=== PATIENT | female | born 1970 | race Caucasian/White ===

== ENCOUNTER 2017-12-31 06:03 | Inpatient (IN) | payer OTHER ==
[2017-12-31 06:43] LABS: ADD MAN DIFF? NO
[2017-12-31 06:46] LABS: BASO # 0.1 x10^3/uL (0.0-0.2); BASO % 1 % (0-3); BILIRUBIN,URINE NEGATIVE (NEG); CLARITY,URINE CLOUDY; COLOR,URINE YELLOW; EOS # 0.1 x10^3/uL (0.0-0.7); EOS % 2 % (0-3); GLUCOSE,URINE NEGATIVE (NEG); HEMATOCRIT 41.4 % (36.0-47.0); HEMOGLOBIN 13.6 g/dL (12.0-15.5); LYMPH # 1.9 x10^3/uL (1.0-4.8); LYMPH % 27 % (24-48); MEAN CORPUSCULAR HEMOGLOBIN 26 pg (25-35); MEAN CORPUSCULAR HGB CONC 33 g/dL (31-37); MEAN CORPUSCULAR VOLUME 80 fL (79-100); MONO # 0.5 x10^3/uL (0.0-1.1); MONO % 8 % (0-9); NEUT # 4.5 x10^3uL (1.8-7.7); NEUT % 63 % (31-73); NITRITE,URINE NEGATIVE (NEG); PH,URINE 5.5; PLATELET COUNT 182 x10^3/uL (140-400); PROTEIN,URINE NEGATIVE (NEG-TRACE); RED BLOOD COUNT 5.18 x10^6/uL (3.50-5.40); RED CELL DISTRIBUTION WIDTH 14.9 % (11.5-14.5); UROBILINOGEN,URINE 0.2 mg/dL (0.2 mg/dL); WHITE BLOOD COUNT 7.1 x10^3/uL (4.0-11.0)
[2017-12-31] MEDS: fentaNYL PF VIAL 100 MCG/2 ML VIAL IV ×3 (06:51→16:34)
[2017-12-31] MEDS: ONDANSETRON PF 4 MG/2 ML VIAL. IV ×2 (06:51→17:06)
[2017-12-31 06:53] LABS: ANION GAP 8 (6-14); BLOOD UREA NITROGEN 13 mg/dL (7-20); BUN/CREATININE RATIO 13 (6-20); CALCIUM 8.9 mg/dL (8.5-10.1); CARBON DIOXIDE 27 mmol/L (21-32); CHLORIDE 106 mmol/L (98-107); GLUCOSE 103 mg/dL (70-99); POTASSIUM 3.4 mmol/L (3.5-5.1); SODIUM 141 mmol/L (136-145)
[2017-12-31 06:58] LABS: ALBUMIN 3.4 g/dL (3.4-5.0); ALBUMIN/GLOBULIN RATIO 0.8 (1.0-1.7); ALK PHOS 145 U/L (46-116); ALT (SGPT) 24 U/L (14-59); AST (SGOT) 18 U/L (15-37); LIPASE 181 U/L (73-393); TOTAL BILIRUBIN 0.4 mg/dL (0.2-1.0); TOTAL PROTEIN 7.6 g/dL (6.4-8.2)
[2017-12-31 07:03] LABS: TROPONINI < 0.017 ng/mL (0.000-0.055)
[2017-12-31 07:12] LABS: RBC,URINE OCC /HPF (0-2); WBC,URINE 20-40 /HPF (0-4)
[2017-12-31 07:13] LABS: BACTERIA,URINE MODERATE /HPF (0-FEW); SQUAMOUS EPITHELIAL CELL,UR MANY /LPF
[2017-12-31] MEDS ORDERED: CONTRAST GIVEN MC (07:30)
[2017-12-31] MEDS: IOHEXOL 300 MG/ML 100ML VIAL. IV (07:43)
[2017-12-31] MEDS: IV RINGERS,LACTATED 1000ML 1,000 ML IV ×2 (09:03→14:00)
[2017-12-31] MEDS: IV NORMAL SALINE 1000ML BAG 1,000 ML IV ×2 (09:13→15:53)
[2017-12-31] MEDS: MORPHINE SULFATE 4 MG/ML DISP.SYRIN. IV ×2 (09:14→12:48)
[2017-12-31] MEDS ORDERED: LIDOCAINE 1% PF 2 ML VIAL. ID (09:15)
[2017-12-31] MEDS: PIPERACILLIN/TAZOBACTAM 3.375 GM in IV NORMAL SALINE 50ML 50 ML IV (09:15)
[2017-12-31] MEDS ORDERED: ONDANSETRON PF 4 MG/2 ML VIAL. IV (09:15)
[2017-12-31] MEDS ORDERED: fentaNYL PF VIAL 100 MCG/2 ML VIAL IV (09:15)
[2017-12-31] MEDS ORDERED: MORPHINE SULFATE 4 MG/ML DISP.SYRIN. IV (09:15)
[2017-12-31] MEDS ORDERED: ROCURONIUM 50 MG/5 ML VIAL. (14:37)
[2017-12-31] MEDS ORDERED: MIDAZOLAM HCL/PF 2 MG/2 ML VIAL. (14:37)
[2017-12-31] MEDS ORDERED: fentaNYL PF VIAL 100 MCG/2 ML VIAL (14:37)
[2017-12-31] MEDS ORDERED: NEOSTIGMINE 10 MG/10 ML VIAL. (14:37)
[2017-12-31] MEDS ORDERED: GLYCOPYRROLATE 1 MG/5 ML VIAL. (14:38)
[2017-12-31] MEDS ORDERED: SEVOFLURANE 61 TO 120 MINUTES. IH (14:38)
[2017-12-31] MEDS ORDERED: SUCCINYLCHOLINE 200 MG/10 ML VIAL. (14:38)
[2017-12-31] MEDS ORDERED: KETOROLAC 30 MG/ML INJ FOR OR. INJ (14:38)
[2017-12-31] MEDS ORDERED: ONDANSETRON PF 4 MG/2 ML VIAL. (14:38)
[2017-12-31] MEDS ORDERED: DEXAMETHASONE SOD PHOS 20 MG/5 ML VIAL. (14:38)
[2017-12-31] MEDS ORDERED: PROPOFOL 20 ML IV (14:38)
[2017-12-31] MEDS: BUPIVACAINE-EPI 0.25%-1:200000 50 ML VIAL. INJ (15:27)
[2017-12-31] MEDS ORDERED: oxyCODONE/APAP 5/325 1 TAB TABLET PO (16:00)
[2017-12-31] MEDS: PROCHLORPERAZINE 10 MG/2 ML VIAL. IV (16:05)
[2017-12-31] MEDS: oxyCODONE/APAP 5/325 1 TAB TABLET PO (22:40)
[2018-01-01] MEDS: IV NORMAL SALINE 1000ML BAG 1,000 ML IV ×2 (01:22→05:13)
[2018-01-01] MEDS: oxyCODONE/APAP 5/325 1 TAB TABLET PO ×4 (05:35→21:20)
[2018-01-01] MEDS ORDERED: ONDANSETRON PF 4 MG/2 ML VIAL. IV (12:45)
[2018-01-01] MEDS: ONDANSETRON ODT 4 MG TAB.RAPDIS. PO ×2 (13:25→21:18)
[2018-01-02] MEDS: ONDANSETRON ODT 4 MG TAB.RAPDIS. PO (06:21)
[2018-01-02] MEDS: oxyCODONE/APAP 5/325 1 TAB TABLET PO (06:22)
== END 2018-01-02 11:00 | disposition home or self-care (01) | DRG 342 ==
LOC: ER 06:03 → 4 NORTH 08:00
PROC: 0DTJ4ZZ Resection of Appendix, Percutaneous Endoscopic Approach (ICD-10-PCS; principal; 2017-12-31 14:00)
DX: K35.80 Unspecified acute appendicitis (principal); N39.0 Urinary tract infection, site not specified; E87.6 Hypokalemia; F17.210 Nicotine dependence, cigarettes, uncomplicated; Z98.891 History of uterine scar from previous surgery
CPT/HCPCS: 36415; 74177; 80053; 81001; 83690; 84484; 85025; 87086; 88304; 96365; 96374; 96375; 99285; 99285-25; J0330; J0780; J1100; J1885; J2250; J2270; J2405; J2543; J2704; J2710; J3010; J3490; J7030; J7120; Q0162; Q9967

== ENCOUNTER 2019-11-23 13:17 | Emergency (ER) | payer OTHER ==
[~2019-11-23] VITALS: Ht 160 cm; Wt 74.5 kg
[~2019-11-23 13:17] MED LIST: OXYC1TAB7 PO
[2019-11-23 13:36] VITALS: BP 141/85
[2019-11-23] MEDS ORDERED: HYDROcodone/APAP 5/325MG 1 TAB TABLET PO ONE (13:45)
[2019-11-23] MEDS ORDERED: DIPHTH,PERTUSS(ACELL),TET TOX 0.5 ML DISP.SYRIN. VAX IM ONE (13:45)
--- NOTE | 2019-11-23 13:54 | PHYS DOC ---
Past Medical History Past Medical History: No Pertinent History Past Surgical History: Hysterectomy Smoking Status: Current Every Day Smoker Alcohol Use: None Drug Use: None Adult General Chief Complaint Chief Complaint: ANIMAL BITE HPI HPI Patient is a 49 year old female who presents with patient states that her cat got out of the house somehow this morning. She states they then had let the dogs out to go to the bathroom. She states that she has a great Elfego in a [employer] dog. She states she then heard screaming and when outside in the great Elfego in the [employer] had the cat. She states she tried to break it up and get the cat and somehow got bit by one of the dogs. She states the dogs are up-to-date on vaccinations. She does not know when her last tetanus was. Patient has left fifth finger pain and right ring finger pain. Review of Systems Review of Systems Integument: Left 5th finger injury and Right 4th finger injury. Denies rash or skin lesions [] All other systems were reviewed and found to be within normal limits, except as documented in this note. Current Medications Current Medications Current Medications Medications (Trade) Dose Ordered Sig/Corinna Start Time Stop Time Status Last Admin Dose Admin Acetaminophen/ Hydrocodone Bitart (Lortab 5/325) 1 tab 1X ONCE 11/23/19 13:45 11/23/19 13:47 DC 11/23/19 13:55 1 TAB Diphtheria/ Tetanus/Acell Pertussis (Boostrix) 0.5 ml ONCE ONCE 11/23/19 13:45 11/23/19 13:47 DC 11/23/19 13:55 0.5 ML Allergies Allergies Allergies Coded Allergies Type Severity Reaction Last Updated Verified No Known Drug Allergies 12/31/17 No Physical Exam Physical Exam Constitutional: Well developed, well nourished, no acute distress, non-toxic appearance. [] HENT: Normocephalic, atraumatic, bilateral external ears normal, oropharynx moist, no oral exudates, nose normal. [] Eyes: PERRLA, EOMI, conjunctiva normal, no discharge. [] Neck: Normal range of motion, no tenderness, supple, no stridor. [] Cardiovascular:Heart rate regular rhythm, no murmur [] Lungs & Thorax: Bilateral breath sounds clear to auscultation [] Abdomen: Bowel sounds normal, soft, no tenderness, no masses, no pulsatile masses. [] Skin: puncture wound to Left 5th finger and superficial laceration to Right 4th finger. Bruising. Warm, dry, no erythema, no rash. [] Back: No tenderness, no CVA tenderness. [] Extremities:R 4TH finger and 5th left finger tenderness, no cyanosis, no clubbing, ROM intact, no edema. [] Neurologic: Alert and oriented X 3, normal motor function, normal sensory function, no focal deficits noted. [] Psychologic: Affect normal, judgement normal, mood normal. [] Current Patient Data Vital Signs Vital Signs Date Time Temp Pulse Resp B/P (MAP) Pulse Ox O2 Delivery O2 Flow Rate FiO2 11/23/19 13:36 98.3 108 22 141/85 (103 97 Room Air 98.3 EKG EKG [] Radiology/Procedures Radiology/Procedures [] Impressions: [facility] [address] [place] [address] IMAGING REPORT Signed PATIENT: ANDRES BUENO ACCOUNT: [id number] : 1970 LOCATION: ER AGE: 49 SEX: F EXAM STATUS: REG ER ORD. PHYSICIAN: MARY GRIGGS APRN REASON: dog bite,no feeling in 5th digit of right hand,laceration on 4th digit left PROCEDURE: HAND BILAT 3V EXAM: Bilateral hands, 3 views. HISTORY: Dog bite. Laceration. COMPARISON: None. FINDINGS: 3 views of both hands are obtained. There is no fracture, dislocation or subluxation. No radiodense foreign body is seen. IMPRESSION: No acute osseous finding or radiodense foreign body. Electronically signed by: Eileen Alvarado MD (11/23/2019 2:13 PM) [facility] [place] DICTATED and SIGNED BY: EILEEN ALVARADO MD DATE: 11/23/191412 Course & Med Decision Making Course & Med Decision Making Pertinent Labs and Imaging studies reviewed. (See chart for details) Patient has 1 puncture wound to the right ring finger to the proximal middle phalanx on the inner left side. Bleeding is controlled and there is some bruising with 1+ edema. Patient can make a fist and move the finger. No deformity. Skin pink warm and dry. Radial pulse strong and present. Cap refill less than 3 seconds. Patient's second wound is to the left fifth finger at the distal phalanx. Patient has 4 superficial lacerations that are no bigger than 2- 3 mm long. Bleeding controlled. There is bruising and 1+ edema to the distal phalanx. Cap refill less than 3 seconds. Patient states that it is tingling. No joint deformities or bruising, damage or lacerations. Patient is given Boostrix and [place]. The wounds are cleaned with chlorhexidine and saline. [] Dragon Disclaimer Dragon Disclaimer This electronic medical record was generated, in whole or in part, using a voice recognition dictation system. Departure Departure Impression: Primary Impression: Dog bite Disposition: HOME, SELF-CARE Condition: STABLE Referrals: NO PCP (PCP) Patient Instructions: Animal Bite Additional Instructions: Keep areas clean and covered. Take antibiotic with food and as prescribed. Use ice and Ibuprofen to help with pain. Follow up with primary care provider. Watch for signs of infection. Scripts Ibuprofen (IBUPROFEN) 600 Mg Tablet 600 MG PO PRN Q6HRS PRN for INFLAMMATION, #20 TAB Prov: MARY GRIGGS APRN 11/23/19 Amoxicillin/Potassium Clav (AUGMENTIN 875-125 TABLET) 1 Each Tablet 1 TAB PO BID for 10 Days, #20 TAB 0 Refills Prov: MARY GRIGGS APRN 11/23/19 Problem Qualifiers Primary Impression: Dog bite Encounter type: initial encounter Qualified Codes: W54.0XXA - Bitten by dog, initial encounter MARY GRIGGS APRN Nov 23, 2019 13:54
--- NOTE | 2019-11-23 14:16 | RAD ---
EXAM: Bilateral hands, 3 views. HISTORY: Dog bite. Laceration. COMPARISON: None. FINDINGS: 3 views of both hands are obtained. There is no fracture, dislocation or subluxation. No radiodense foreign body is seen. IMPRESSION: No acute osseous finding or radiodense foreign body. Electronically signed by: Eileen Lockwood MD (11/23/2019 2:13 PM) [facility] [place]
[2019-11-23] MEDS ORDERED: AMOX1TAB61 PO (14:22)
[2019-11-23] MEDS ORDERED: IBUP-1007 PO (14:23)
== END 2019-11-23 14:25 | disposition home or self-care (01) ==
LOC: ER 13:17
DX: S61.215A Laceration without foreign body of left ring finger without damage to nail, initial encounter (principal); S61.217A Laceration without foreign body of left little finger without damage to nail, initial encounter; F17.200 Nicotine dependence, unspecified, uncomplicated; W54.0XXA Bitten by dog, initial encounter; Y93.89 Activity, other specified; Y92.89 Other specified places as the place of occurrence of the external cause; Y99.8 Other external cause status
CPT/HCPCS: 73130; 90471; 90715; 99283

== ENCOUNTER → 2022-01-20 | Outpatient (CLI) | payer OTHER ==
[~2022-01-20] VITALS: Ht 160 cm; Wt 76.2 kg
[~2022-01-20] MED LIST changes: +AMOX1TAB61 PO; +IBUP-1007 PO; +SINCALIDE 1.5 MCG in IV NORMAL SALINE 50ML 30 ML IV ONE
--- NOTE | 2022-01-20 09:06 | RAD ---
EXAMINATION: US ABDOMEN LIMITED 01/20/2022 6:55 AM INDICATION: Epigastric pain TECHNIQUE: Almonte scale and color Doppler ultrasound images of the right upper quadrant were obtained. COMPARISON: CT abdomen and pelvis 12/31/2017 FINDINGS: Liver: The liver is normal in size measuring 17 cm in length. Mildly increased hepatic echogenicity. There is an echogenic lesion measuring 1.5 cm in the right hepatic lobe, likely hemangioma. Gallbladder: The gallbladder is normal in caliber. No cholelithiasis or sludge. The gallbladder wa ll is normal in thickness measuring 2 mm. Bile ducts: The common bile duct is mildly dilated measuring 8 mm. No intrahepatic biliary duct dil atation. Right kidney: The right kidney measures 11.5 x 4.8 x 4.0 cm. Normal cortical thickness and echogenic ity. No hydronephrosis. Other: The IVC is patent at the level of the liver. The pancreas is normal where visualized. IMPRESSION: 1. Mild hepatic steatosis. 2. 1.5 cm echogenic lesion in the right hepatic lobe, likely a hemangioma. 3. Mildly dilated common bile duct measuring 8 mm. Consider MRCP to evaluate for distal obstruction. 4. Normal gallbladder. Electronically signed by: Virginia Josue MD (01/20/2022 9:04 AM) [id number]
--- NOTE | 2022-01-20 11:05 | RAD ---
HEPATOBILIARY SCAN WITH EJECTION FRACTION History: Epigastric pain x5 months. Comparison: Limited abdominal ultrasound 01/20/2022. Procedure: Serial static images are obtained of the liver and biliary system in the frontal projectio n following IV administration of 5 mCi of Technetium 99m Choletec. After filling of the gallbladder , 5 mcg of sincalide were infused over 15 minutes and dynamic imaging continued over this period. The gallbladder ejection fraction was calculated. Findings: There is prompt hepatic clearance of tracer from the blood pool. There is homogeneous distribution th roughout the liver. There is normal filling of the gallbladder and normal emptying into the biliary s ystem and small bowel. The gallbladder ejection fraction measures 30% (normal gallbladder EF is 35% o r greater). IMPRESSION: 1. The cystic duct and common bile duct are patent. Negative for acute cholecystitis. 2. The gallbladder ejection fraction is abnormal measuring 30%. Findings may indicate gallbladder dys kinesia or chronic cholecystitis. Electronically signed by: Jeet العلي MD (01/20/2022 11:02 AM) [id number]
== END ==
LOC: US 06:48
PROVIDERS: ATTEND Internal Medicine Gastroenterology
DX: K76.0 Fatty (change of) liver, not elsewhere classified (principal); K83.8 Other specified diseases of biliary tract; K76.89 Other specified diseases of liver
CPT/HCPCS: 76705; 78227; A9537; J2805

== ENCOUNTER → 2022-02-19 | Outpatient (CLI) | payer OTHER ==
[~2022-02-19] MED LIST changes: +CHOL400C2 PO; +LEVO88TA4 PO; +OMEP20TA63 PO; +OXYC-325 PO; -SINCALIDE 1.5 MCG in IV NORMAL SALINE 50ML 30 ML IV ONE
== END ==
LOC: LAB 08:01
PROVIDERS: ATTEND Surgery
DX: Z01.812 Encounter for preprocedural laboratory examination (principal); Z20.822 Contact with and (suspected) exposure to COVID-19; K82.8 Other specified diseases of gallbladder
CPT/HCPCS: U0003

== ENCOUNTER 2022-02-21 07:19 | Day surgery (SDC) | payer OTHER ==
[~2022-02-21] VITALS: Ht 162.6 cm; Wt 78.5 kg
[~2022-02-21 07:19] MED LIST changes: +ACETAMINOPHEN 500 MG TABLET PO PRN; -CHOL400C2 PO; +IV RINGERS,LACTATED 1000ML 1,000 ML IV SCH; -LEVO88TA4 PO; +MORPHINE SULFATE 2 MG/ML INJ. IVP PRN; -OMEP20TA63 PO; -OXYC-325 PO; +ceFAZolin SODIUM IV Push 1 GM VIAL. IVP ONE; +ceFAZolin SODIUM IV Push 1 GM VIAL. IVP PRN; +fentaNYL PF VIAL 100 MCG/2 ML VIAL IVP PRN
[2022-02-21 08:01] VITALS: BP 115/62
[2022-02-21] MEDS ORDERED: LEVO88TA4 PO (08:10)
[2022-02-21] MEDS ORDERED: OMEP20TA63 PO (08:10)
[2022-02-21] MEDS ORDERED: CHOL400C2 PO (08:10)
--- NOTE | 2022-02-21 08:13 | NUR ---
1.5 cc ICG given IV per Dr. Dr. Chandra's orders.
[2022-02-21] MEDS ORDERED: BUPIVACAINE-EPI 0.25% 30 ML VIAL KIT. ONE (08:32)
[2022-02-21] MEDS ORDERED: SURGICEL HEMOSTAT 4X8 EACH. ONE (08:32)
[2022-02-21] MEDS ORDERED: IOHEXOL 300 MG/ML 50 ML VIAL. ONE (08:32)
[2022-02-21] MEDS ORDERED: PROPOFOL 10 MG/ML (20ML) VIAL. IV ONE (08:49)
[2022-02-21] MEDS ORDERED: SEVOFLURANE 61 TO 120 MINUTES. IH ONE (08:49)
[2022-02-21] MEDS ORDERED: ONDANSETRON PF 4 MG/2 ML VIAL. ONE (08:49)
[2022-02-21] MEDS ORDERED: DEXAMETHASONE SOD PHOS 4 MG/ML VIAL ONE (08:49)
[2022-02-21] MEDS ORDERED: NEOSTIGMINE METHYLSULFATE 5 MG/5 ML SYRINGE. ONE (08:50)
[2022-02-21] MEDS ORDERED: fentaNYL PF VIAL 100 MCG/2 ML VIAL ONE ×2 (08:50→09:47)
[2022-02-21] MEDS ORDERED: GLYCOPYRROLATE 1 MG/5 ML VIAL. ONE (08:50)
[2022-02-21] MEDS ORDERED: ROCURONIUM 50 MG/5 ML VIAL. ONE (08:50)
[2022-02-21] MEDS ORDERED: MIDAZOLAM HCL/PF 2 MG/2 ML VIAL. ONE (08:51)
--- NOTE | 2022-02-21 09:36 | PDOC4 ---
Operative Note Operative Note Date: February 21, 2022 at 9:34 AM Preoperative diagnosis: Biliary dyskinesia Postoperative diagnosis: Same Procedure: Laparoscopic cholecystectomy fluorescein cholangiography Surgeon: Prateek Specimen: Gallbladder Dictation: Patient is a 51-year-old female with right upper quadrant abdominal pain and an abnormal biliary scan. Procedure of laparoscopic cholecystectomy was explained to the patient detail risk-benefit were also discussed including bleeding infection injury to intra-abdominal contents possible necessitating further open operations alternatives this procedure also discussed with the patient who seemed to understand and gave a verbal written consent to have procedure performed. Patient was taken to the operating room placed in supine position general anesthesia was initiated once patient was sleeping intubated her abdomen was prepped and draped usual sterile fashion using ChloraPrep. Area just below the umbilicus was injected with quarter percent Marcaine with epinephrine incision made 11 blade scalpel and a varies needle was placed within the abdomen creating pneumoperitoneum once this complete 11 mm port was placed and a 5 mm camera is placed within the abdomen which was inspected no other abnormalities were noted. 5 mm ports placed in the right upper quadrant 5 mm port was placed in the epigastrium and a 5 mm ports placed in the lateral upper abdomen. All under direct visualization. The dome of the gallbladder is grasped retracted cephalad the infundibulum the gallbladder is grasped directed laterally the adherent tissues to the gallbladder taken down blunt dissection exposing the cystic duct and cystic artery fluorescing cholangiography was performed showing good dye within the cystic duct to the common bile duct without evidence of obstruction and delineating the anatomy. The cystic duct was doubly clipped and transected the cystic artery was similarly clipped and transected the gallbladder was taken off the liver with hook electrocautery placed in Endo Catch bag and removed the umbilicus the right upper quadrant is irrigated suctioned dry hemostasis deemed be appropriate the pneumoperitoneum was reduced all ports were removed the fascial defect at the umbilicus was closed with a [id number] 0 Vicryl suture and the skin was reapproximated all port sites for subcuticular Monocryl Mastisol Steri-Strips and island dressings were applied. Patient was awakened extubated in the operating room taken to recovery in stable condition all sponge instrument needle counts listed as correct estimated blood loss 10 mL KIRIT STEIN MD February 21, 2022 09:36
[2022-02-21] MEDS ORDERED: OXYC-325 PO (09:39)
--- NOTE | 2022-02-21 09:41 | DISCH ---
DISCHARGE INSTRUCTIONS Condition on Discharge Condition on Discharge: Stable Activity After Discharge Activity Instructions for Disc: Avoid exertion Other activity instructions: No lifting more than 20 pounds for 2-week Lifting Instructions after Dis: No heavy lifting Diet after Discharge Diet after Discharge: Low Fiber Diet Texture: Regular Wound Incision Care Other wound/incision instructi: Dori wilson in 24-hour Contacting the after DC Call your doctor for: If your condition worsens Follow-Up Follow up with: Dr. Stein in 2-week Treatment/Equipment after DC Adaptive Equipment Issued: None KIRIT STEIN MD February 21, 2022 09:41
[2022-02-21] MEDS ORDERED: KETOROLAC 30 MG/ML VIAL. ONE (09:47)
[2022-02-21] MEDS ORDERED: HYDROmorphone 2 MG/ML INJ. ONE (09:54)
[2022-02-21] MEDS ORDERED: PROCHLORPERAZINE 10 MG/2 ML VIAL. ONE (09:54)
[2022-02-21] MEDS: PROCHLORPERAZINE 10 MG/2 ML VIAL. IVP PRN ×2 (09:59→10:11)
[2022-02-21] MEDS: HYDROmorphone 2 MG/ML INJ. IVP PRN ×4 (09:59→10:31)
[2022-02-21] MEDS ORDERED: oxyCODONE/APAP 5/325 1 TAB TABLET PO ONE (10:30)
[2022-02-21 11:00] VITALS: BP 105/62
--- NOTE | 2022-02-24 17:08 | PATHOLOGY ---
[facility] Accession Number: [id number] . 01 Material submitted: . gallbladder - GALLBLADDER . 01 Clinical history: . BILLIARY DYSKINESIA . 02 Diagnosis: Gallbladder, laparoscopic cholecystectomy: - Chronic cholecystitis. . ([facility]:mm; 02/24/2022) [facility] 02/24/2022 1609 Local . 02 Comment: There are no calculi identified within the gallbladder lumen or specimen container. There is no evidence of malignancy. . ([facility]:mmmarcie; 02/24/2022) . 02 Electronically signed: . Nitesh Sprague MD, Pathologist NPI- [id number] . 01 Gross description: . Fixative: Formalin Labeled: Gallbladder Specimen received: Previously punctured gallbladder Dimensions: 6.3 x 3.2 x 2.7 cm Serosa: Almonte-green Lymph node: Not identified Mucosa: Velvety, light oconnell, bile-stained Average wall thickness: 0.1 cm Calculi: None identified Abnormalities: None identified . Loop Sewer body, fundus, and the cystic duct margin submitted in cassette A1. ([facility]; 02/21/2022) [facility] 02/21/2022 1608 Local . 02 Pathologist provided ICD-10: K81.1 . 02 CPT . 946390 Specimen Comment: A courtesy copy of this report has been sent to [phone] Specimen Comment: Report sent to Specimen Comment: A duplicate report has been generated due to demographic updates. Performed at: 01 [facility] [address], [place] [id number] MD Jhonatan Bustamante MD Phone: [phone] Performed at: 02 [facility] [address] [place], [place] [id number] MD Nitesh Sprague MD Phone: [phone]
== END 2022-02-21 11:25 | disposition home or self-care (01) ==
LOC: SURG 07:19
PROVIDERS: ATTEND Surgery
DX: K81.1 Chronic cholecystitis (principal); K82.8 Other specified diseases of gallbladder; K21.9 Gastro-esophageal reflux disease without esophagitis; E03.9 Hypothyroidism, unspecified; F17.210 Nicotine dependence, cigarettes, uncomplicated; Z90.710 Acquired absence of both cervix and uterus; Z98.890 Other specified postprocedural states; Z79.899 Other long term (current) drug therapy
CPT/HCPCS: 47563; A4930; A6219; J0690; J0780; J1100; J1170; J1885; J2250; J2405; J2704; J2710; J3010; J3490; 88304; A4657; Q9967